=== PATIENT | male | born 1995 | race Two or more races ===

== ENCOUNTER 2019-07-11 12:10 | Outpatient (CLI) | payer OTHER ==
--- NOTE | 2019-07-11 14:43 | MRI Report ---
Reason: PAIN IN LOWER LEG Procedure Date: 07/11/2019 Accession Number: [id number] / [id number] Procedure: MRI - Lower Leg (Tib-Fib) RT W/O CPT Code: FULL RESULT: EXAM: RIGHT CALF/TIBIA MRI WITHOUT CONTRAST EXAM DATE: 07/11/2019 02:20 PM. CLINICAL HISTORY: Pain in lower leg. COMPARISON: None. TECHNIQUE: Multiplanar, multisequence T1-weighted and fluid-sensitive sequences of the calf/tibia without contrast. Other: None. FINDINGS: Bones and articular surfaces: No evidence of acute fracture or stress reaction. No marrow, cortical or significant periosteal edema identified. Muscular tendinous structures: Visualized flexor and extensor tendons appear intact. No muscle edema, atrophy or fatty replacement within the field of view. IMPRESSION: No MRI abnormalities in the calf/tibia. [facility]
--- NOTE | 2019-07-11 16:29 | MRI Report ---
Reason: PAIN IN LOWER LEG Procedure Date: 07/11/2019 Accession Number: [id number] / [id number] Procedure: MRI - Lower Leg (Tib-Fib) LT W/O CPT Code: 29031 FULL RESULT: EXAM: LEFT CALF/TIBIA MRI WITHOUT CONTRAST EXAM DATE: 07/11/2019 03:30 PM. CLINICAL HISTORY: PAIN IN LOWER LEG. COMPARISON: LOWER LEG (TIB-FIB) RT W/O 07/11/2019 1:32 PM. TECHNIQUE: Multiplanar, multisequence T1-weighted and fluid-sensitive sequences of the calf/tibia without contrast. Other: None. FINDINGS: Bones: Visualized marrow signal appears within normal limits. There is failure of fat saturation on the unilateral left axial and sagittal images. However, there is adequate fat saturation on the bilateral coronal T2 fat-saturated images. No significant marrow, cortical or periosteal edema. No evidence of acute fracture or stress reaction. No significant ankle joint effusion. Musculotendinous structures: No muscle edema, atrophy or fatty replacement within the field of view. Visualized musculotendinous structures appear intact. IMPRESSION: No MRI abnormalities in the calf/tibia. [facility]
== END 2019-07-11 12:11 | disposition home or self-care (01) ==
LOC: DI 12:10
PROVIDERS: ATTEND Nurse Practitioner Family
DX: M79.661 Pain in right lower leg (principal); M79.662 Pain in left lower leg

== ENCOUNTER 2019-08-10 13:05 | Outpatient (CLI) | payer OTHER ==
--- NOTE | 2019-08-11 11:53 | Nuclear Medicine Report ---
Reason: RT LOWER LEG PAIN Procedure Date: 08/10/2019 Accession Number: [id number] / [id number] Procedure: NM - Bone 3-Phase CPT Code: Final Report FULL RESULT: EXAM: TRIPLE-PHASE BONE SCAN LIMITED EXAM DATE: 08/10/2019 04:44 PM. CLINICAL HISTORY: Right lower leg pain. History of stress fracture on the left in March 2018. COMPARISON: LOWER LEG (TIB-FIB) LT W/O 07/11/2019 2:18 PM LOWER LEG (TIB-FIB) RT W/O 07/11/2019 1:32 PM. TECHNIQUE: Patient was injected with 30.7 mCi of technetium 99m MDP intravenously with flow phase gamma camera imaging anteriorly over the lower legs, 5 seconds per frame for 1 minute. Subsequently, blood pool images of the lower legs were obtained. The patient returned 3 hours later for multiple spot images of the lower legs. FINDINGS: Flow Phase: There is symmetric flow to bilateral extremities. Blood Pool Phase: Images show no focal increased or decreased uptake. Delayed Phase: There is mildly increased and asymmetric linear tracer uptake along the posterior cortex of the left tibia. There is also mildly greater tracer uptake in the posterior right calcaneus compared to the left. IMPRESSION: 1. No abnormal hyperemia. 2. Subtle, asymmetric and mildly increased tracer uptake along the posterior cortex of the left tibia compared to the right. Pattern may represent bell splint. 3. Mildly greater delayed phase tracer uptake in the posterior right calcaneus compared to the left. [facility]
== END 2019-08-10 13:06 | disposition home or self-care (01) ==
LOC: DI 13:05
PROVIDERS: ATTEND Orthopaedic Surgery
DX: M79.661 Pain in right lower leg (principal)
CPT/HCPCS: 78315